=== PATIENT | female | born 1935 | race Caucasian/White ===

== ENCOUNTER 2016-08-24 23:40 | Emergency (ER) | payer BC ==
[2016-08-25 00:12] VITALS: BMI 30.4
--- NOTE | 2016-08-25 00:27 | PDOC ---
History of Present Illness - History of Present Illness Initial Comments: 08/25/16 00:37 Patient is a 81 year old female with significant medical hx of insomnia, HTN, hypothyroidsim, arthritis, and sleep apnea who is presenting to the ED with headache for 12 hours. Patient complains of left sided headache that has been constant over the past 12 hours. The patient took diflusinal for her pain but did not have any relief. The patient states that shes visiting the [facility] from [place] because her sister had a stroke. Denies any fever, chills, nausea, vomiting, lightheadedness, dizziness, weakness, numbness, tingling, or any visual changes. Allergy: ASA allergy <Olivia Wilcox - Last Filed: 08/25/16 01:47> <Sanjuana Balderas - Last Filed: 08/25/16 02:57> - General Chief Complaint: Headache Stated Complaint: HEADACHE Time Seen by Provider: 08/25/16 00:02 Past History <Olivia Wilcox - Last Filed: 08/25/16 01:47> - Psycho/Social/Smoking Cessation Hx Suicidal Ideation: No Smoking History: Never smoked Have you smoked in the past 12 months: No Information on smoking cessation initiated: No Hx Alcohol Use: No Drug/Substance Use Hx: No <Sanjuana Balderas - Last Filed: 08/25/16 02:57> - Past Medical History Allergies/Adverse Reactions: Allergies Allergy/AdvReac Type Severity Reaction Status Date / Time aspirin Allergy Swelling Verified 08/25/16 00:36 Home Medications: Ambulatory Orders Clonazepam [Klonopin] 5 mg PO DAILY 08/25/16 Doxazosin Mesylate 2 mg PO DAILY 08/25/16 Trazodone HCl 50 mg PO DAILY 08/25/16 Review of Systems - Review of Systems Comments:: 08/25/16 00:38 CONSTITUTIONAL: Absent: fever, chills, diaphoresis, generalized weakness, malaise, loss of appetite HEENT: Absent: rhinorrhea, nasal congestion, throat pain, throat swelling, difficulty swallowing, mouth swelling, ear pain, eye pain, visual changes CARDIOVASCULAR: Absent: chest pain, syncope, palpitations, irregular heart rate, lightheadedness , peripheral edema RESPIRATORY: Absent: cough, shortness of breath, dyspnea with exertion, orthopnea, wheezing, stridor, hemoptysis GASTROINTESTINAL: Absent: abdominal pain, abdominal distension, nausea, vomiting, diarrhea, constipation, melena, hematochezia GENITOURINARY: Absent: dysuria, frequency, urgency, hesitancy, hematuria, flank pain, genital pain MUSCULOSKELETAL: Absent: myalgia, arthralgia, joint swelling SKIN: Absent: rash, itching, pallor HEMATOLOGIC/IMMUNOLOGIC: Absent: easy bleeding, easy bruising, lymphadenopathy, frequent infections ENDOCRINE: Absent: unexplained weight gain, unexplained weight loss, heat intolerance, cold intolerance NEUROLOGIC: Present: headache Absent: focal weakness or paresthesia, dizziness, unsteady gait, seizure, mental status changes, bladder or bowel incontinence. PSYCHIATRIC: Absent: anxiety, depression, suicidal or homicidal ideation, hallucinations <Olivia Wilcox - Last Filed: 08/25/16 01:47> *Physical Exam - Vital Signs Last Vital Signs Temp Pulse Resp BP Pulse Ox 98.1 F 65 17 138/54 97 08/25/16 00:10 08/25/16 00:10 08/25/16 00:10 08/25/16 00:10 08/25/16 00:10 - Physical Exam Comments: 08/25/16 00:39 GENERAL: Well developed, well nourished. Awake and alert. No acute distress. HEENT: Normocephalic, atraumatic. PERRLA, EOMI. No conjunctival pallor. Sclera are non- icteric. Moist mucous membranes. Oropharynx is clear. NECK: Supple. Full ROM. No JVD. Carotid pulses 2+ and symmetric, without bruits. No thyromegaly. No lymphadenopathy. CARDIOVASCULAR: Regular rate and rhythm. No murmurs, rubs, or gallops. Distal pulses are 2+ and symmetric. PULMONARY: No evidence of respiratory distress. Lungs clear to auscultation bilaterally. No wheezing, rales or rhonchi. ABDOMINAL: Soft. Non-tender. Non-distended. No rebound or guarding. No organomegaly. Normoactive bowel sounds. MUSCULOSKELETAL: Normal range of motion at all joints. No bony deformities or tenderness. No CVA tenderness. EXTREMITIES: No cyanosis. No clubbing. No edema. No calf tenderness. SKIN: Warm and dry. Normal capillary refill. No rashes. No jaundice. NEUROLOGICAL: Alert, awake, appropriate. Cranial nerves 2-12 intact. Normal speech. Gait is normal without ataxia. PSYCHIATRIC: Cooperative. Good eye contact. Appropriate mood and affect. <Olivia Wilcox - Last Filed: 08/25/16 01:47> - Vital Signs Last Vital Signs Temp Pulse Resp BP Pulse Ox 98.1 F 65 17 138/54 97 08/25/16 00:10 08/25/16 00:10 08/25/16 00:10 08/25/16 00:10 08/25/16 00:10 <Sanjuana Balderas - Last Filed: 08/25/16 02:57> ED Treatment Course - RADIOLOGY Radiograph Interpretation: 08/25/16 01:47 Engineering Faculty Member: ([email or web address]) Report Date: 08/25/2016 00:40:00 Report Status: Preliminary Begin of Report Content Referring Physician: Sanjuana Balderas Patient Name: Celine Tinoco THIS IS A PRELIMINARY REPORT FROM [facility] EXAM: CT brain without contrast IMAGES: [id number] INDICATION: Occipital headache DATE OF SERVICE: 2016-08-25 00:40:10.0 COMPARISON: none FINDINGS: The ventricular system is midline and nondilated. The sulcal pattern is normal for the patient's age. Minimal small vessel ischemic changes are noted. There is no bleed, mass, extra-axial fluid collection or mass effect. A small right cerebellar calcification may be an arachnoid granulation. No skull fracture or skull lesion is identified. The visualized paranasal sinuses and mastoid air cells are clear. IMPRESSION: No evidence of acute pathology. THIS DOCUMENT HAS BEEN ELECTRONICALLY SIGNED Bud Watkins MD 08/25/2016 01:20 LUZ Valenzuela Please call [facility] [phone] ([phone]) with questions. End of Report Content <Olivia Wilcox - Last Filed: 08/25/16 01:47> Medical Decision Making - Medical Decision Making 08/25/16 01:50 81-year-old female visiting from [place] to take care of her sister who had a stroke recently presents with a 12 hour headache. She denies any nausea or vomiting or diplopia or blurry vision or neck pain or fever or chills. She took some of her rheumatoid arthritis medicine and an her headache persisted so she came to the emergency department. PMH htn,RA - -the headache is left parietal occipital,she has no temporal pain ,no jaw claudication,no diplopia,no floaters,no field cuts pt has no focal neuro deficits,she is axox3,ambulating with ease Scan of the head was negative for any acute intracranial pathology. Patient discharged home 08/25/16 02:56 <Sanjuana Balderas - Last Filed: 08/25/16 02:57> *DC/Admit/Observation/Transfer - Attestations Scribe Attestion: 08/25/16 00:39 Documentation prepared by Olivia Wilcox, acting as biomedical equipment tech for Sanjuana Balderas MD. <Olivia Wilcox - Last Filed: 08/25/16 01:47> <Sanjuana Balderas - Last Filed: 08/25/16 02:57> Diagnosis at time of Disposition: discharged home - Discharge Dispostion Disposition: HOME Condition at time of disposition: Good - Referrals Referrals: STAFF,NOT ON [Primary Care Provider] -
[2016-08-25] MEDS ORDERED: ACETAMINOPHEN 500 MG TABLET (FP) PO ONE (00:31)
[2016-08-25] MEDS ORDERED: ACETAMINOPHEN 325 MG TABLET (FP) ONE (00:38)
[2016-08-25 02:09] VITALS: BP 146/70; PULSE 67; TEMP 97.1
== END 2016-08-25 02:11 | disposition home or self-care (01) ==
LOC: JER 23:40
DX: R51 Headache (principal); I10 Essential (primary) hypertension; G47.00 Insomnia, unspecified; E03.9 Hypothyroidism, unspecified; M06.80 Other specified rheumatoid arthritis, unspecified site
CPT/HCPCS: 70450-TC; 99281-25